=== PATIENT | female | born 1955 | race Caucasian/White ===

== ENCOUNTER 2016-09-08 08:16 | Emergency (ER) | payer OTHER ==
[~2016-09-08] VITALS: Ht 162.6 cm; Wt 59.1 kg
[2016-09-08] MEDS ORDERED: METFORMIN HCL500 M4 PO (09:03)
[2016-09-08] MEDS ORDERED: LISINOPRIL5 MG PO (09:03)
[2016-09-08] MEDS ORDERED: VENLAFAXINE HCL75 MG PO (09:04)
[2016-09-08] MEDS ORDERED: ALTOPREV20 MG PO (09:04)
[2016-09-08 09:23] LABS: HEMATOCRIT 38.4 % (36.0-46.0); MCH 31.8 PG (29.0-34.0); MCHC 33.9 G/DL (30.0-36.0); MCV 93.9 FL (83-99); MEAN PLAT.VOLUME 9.3 uM^3 (9.5-12.4); PLATELET COUNT 191 K/uL (156-360); RBC DIS.WIDTH-CV 12.9 % (11.8-14.6); RED BLOOD COUNT 4.09 M/uL (3.80-5.20)
[2016-09-08 09:40] LABS: CHLORIDE 107 mEq/L (99-109); POTASSIUM 4.1 mEq/L (3.7-5.4); SODIUM 137 mEq/L (136-147)
[2016-09-08 09:42] LABS: GLUCOSE 205 mg/dL (70-99)
[2016-09-08 09:43] LABS: ANION GAP 8 MEQ/L (2-14)
[2016-09-08 09:44] LABS: TOTAL BILIRUBIN 0.6 mg/dL (0.0-1.0)
[2016-09-08 09:46] LABS: ALKALINE PHOSPHATASE 131 IU/L (3-129); GFR ESTIMATE (CALCULATED) > 59 mL/min/
[2016-09-08 09:47] LABS: UREA NITROGEN (BUN) 11 mg/dL (9-23)
[2016-09-08 10:07] LABS: ADD MIUA? YES; BILIRUBIN NEGATIVE; BLOOD SMALL; COLOR YELLOW ((YELLOW)); GLUCOSE (STRIP) NEGATIVE; KETONES 5; LEUKOCYTES NEGATIVE; NITRITE NEGATIVE; PROTEIN (STRIP) NEGATIVE; SPECIFIC GRAVITY 1.009 (1.000-1.030); UROBILINOGEN 0.2 MG/DL (0.2-1.0)
[2016-09-08 10:29] LABS: BACTERIA RARE /HPF; EPITHELIAL CELLS 2+ /HPF; MUCUS TRACE /LPF; RED BLOOD CELLS 0-5 /HPF (0-5); WHITE BLOOD CELLS 0-5 /HPF (0-5)
[2016-09-08] MEDS ORDERED: ZOFRAN ODT4 MG PO (11:33)
[2016-09-08] MEDS ORDERED: PERCOCET 5/31 TABLET PO (11:33)
[2016-09-08 11:48] VITALS: BP 146/75
== END 2016-09-08 11:50 | disposition home or self-care (01) ==
LOC: EME 08:16
PROVIDERS: Nurse Practitioner Family
DX: K57.90 Diverticulosis of intestine, part unspecified, without perforation or abscess without bleeding (principal); R11.2 Nausea with vomiting, unspecified; E11.9 Type 2 diabetes mellitus without complications; E78.5 Hyperlipidemia, unspecified; Z87.442 Personal history of urinary calculi; M81.0 Age-related osteoporosis without current pathological fracture; F17.200 Nicotine dependence, unspecified, uncomplicated
CPT/HCPCS: 74176; 80053; 81003; 85027; 99281; 99285; J1885; J2270; J2405; J7030

== ENCOUNTER 2017-07-21 11:06 | Emergency (ER) | payer OTHER ==
[~2017-07-21] VITALS: Ht 162.6 cm; Wt 58.7 kg
[~2017-07-21 11:06] MED LIST: ALTOPREV20 MG PO; LISINOPRIL5 MG PO; METFORMIN HCL500 M4 PO; PERCOCET 5/31 TABLET PO; VENLAFAXINE HCL75 MG PO; ZOFRAN ODT4 MG PO
[2017-07-21 11:59] VITALS: BP 146/83
[2017-07-21 12:50] LABS: ADD MIUA? NO; BILIRUBIN NEGATIVE; BLOOD NEGATIVE; COLOR COLORLESS ((YELLOW)); GLUCOSE (STRIP) NEGATIVE; KETONES NEGATIVE; LEUKOCYTES NEGATIVE; NITRITE NEGATIVE; PROTEIN (STRIP) NEGATIVE; SPECIFIC GRAVITY 1.003 (1.000-1.030); UCUL ADDED? NO; UROBILINOGEN 0.2 MG/DL (0.2-1.0)
== END 2017-07-21 13:07 | disposition left against medical advice (07) ==
LOC: EME 11:06
DX: M54.9 Dorsalgia, unspecified (principal); Z53.21 Procedure and treatment not carried out due to patient leaving prior to being seen by health care provider
CPT/HCPCS: 80048; 81003; 85027

== ENCOUNTER 2017-09-15 09:28 | Emergency (ER) | payer OTHER ==
[~2017-09-15] VITALS: Ht 162.6 cm; Wt 54.5 kg
[2017-09-15 11:18] VITALS: BP 127/66
== END 2017-09-15 11:19 | disposition home or self-care (01) ==
LOC: EME 09:28
DX: E11.40 Type 2 diabetes mellitus with diabetic neuropathy, unspecified (principal); Z76.0 Encounter for issue of repeat prescription; M81.0 Age-related osteoporosis without current pathological fracture; Z87.442 Personal history of urinary calculi; F17.200 Nicotine dependence, unspecified, uncomplicated; Z79.84 Long term (current) use of oral hypoglycemic drugs
CPT/HCPCS: 99281; 99283

== ENCOUNTER 2017-10-19 19:57 | Inpatient (IN) | payer OTHER ==
[~2017-10-19] VITALS: Ht 162.6 cm; Wt 55.1 kg
[2017-10-19 20:21] LABS: HEMATOCRIT 34.2 % (36.0-46.0); HEMOGLOBIN 11.8 G/DL (11.9-15.5); MCH 34.5 PG (29.0-34.0); MCHC 34.5 G/DL (30.0-36.0); PLATELET COUNT 64 K/uL (156-360); RBC DIS.WIDTH-CV 12.8 % (11.8-14.6); RBC DIS.WIDTH-SD 47.2 % (39-53); RED BLOOD COUNT 3.42 M/uL (3.80-5.20); WHITE BLOOD COUNT 3.9 K/uL (4.1-10.2)
[2017-10-19 20:33] LABS: CHLORIDE 97 mEq/L (99-109); POTASSIUM 3.9 mEq/L (3.7-5.4); SODIUM 134 mEq/L (136-147)
[2017-10-19 20:35] LABS: GLUCOSE 181 mg/dL (70-99)
[2017-10-19 21:03] LABS: CREATININE 0.9 mg/dL (0.6-1.3); UREA NITROGEN (BUN) 11 mg/dL (9-23)
[2017-10-19 21:05] LABS: GFR ESTIMATE (CALCULATED) > 59 mL/min/
[2017-10-19 21:10] LABS: TROP-I INTERPRETATION NEGATIVE; TROPONIN-I < 0.01 ng/mL (0.0-0.30)
[2017-10-19 22:59] LABS: TROP-I INTERPRETATION NEGATIVE; TROPONIN-I < 0.01 ng/mL (0.0-0.30)
[2017-10-19] MEDS ORDERED: GLUCOPHAGE500 MG PO (23:28)
[2017-10-19] MEDS ORDERED: VENLAFAXINE HC150 MG PO (23:29)
[2017-10-19] MEDS ORDERED: LISINOPRIL5 MG PO (23:29)
[2017-10-19] MEDS ORDERED: NEURONTIN300 MG PO (23:30)
[2017-10-19] MEDS ORDERED: COUGH DROPS1 EACH MM (23:31)
[2017-10-19] MEDS ORDERED: VOLTAREN 1% GE100 GM TP (23:32)
[2017-10-19] MEDS ORDERED: TRAMADOL HCL100 MG PO (23:33)
[2017-10-20] VITALS (7 sets, daily range): BP systolic 110–148; BP diastolic 56–76
[2017-10-20 02:44] LABS: TROP-I INTERPRETATION NEGATIVE; TROPONIN-I < 0.01 ng/mL (0.0-0.30)
[2017-10-20 04:05] LABS: APPEARANCE CLEAR ((CLEAR)); BILIRUBIN NEGATIVE; BLOOD MODERATE; COLOR YELLOW ((YELLOW)); GLUCOSE (STRIP) >=500; KETONES 20; LEUKOCYTES NEGATIVE; NITRITE NEGATIVE; PROTEIN (STRIP) NEGATIVE; SPECIFIC GRAVITY 1.008 (1.000-1.030); UROBILINOGEN 0.2 MG/DL (0.2-1.0)
[2017-10-20 04:08] LABS: BACTERIA RARE /HPF; EPITHELIAL CELLS RARE /HPF; MUCUS NONE SEEN /LPF; RED BLOOD CELLS 15-20 /HPF (0-5); UCUL ADDED? NO; WHITE BLOOD CELLS 0-5 /HPF (0-5)
[2017-10-20 09:31] LABS: BASOPHIL (%) 0.3 % (0-1); EOSINOPHIL (%) 0 % (0-5); HEMATOCRIT 33.6 % (36.0-46.0); HEMOGLOBIN 11.4 G/DL (11.9-15.5); IMMATURE GRANULOCYTE (%) 0.3 % (0.0-0.7); LYMPHOCYTE (%) 19.9 % (15-42); LYMPHOCYTE COUNT 0.7 K/uL (1.0-2.8); MCH 34.8 PG (29.0-34.0); MCHC 33.9 G/DL (30.0-36.0); MCV 102.4 FL (83-99); MONOCYTE (%) 4.4 % (3-12); MONOCYTE COUNT 0.2 K/uL (0-0.8); NEUTROPHIL (%) 75.1 % (45-76); NEUTROPHIL COUNT 2.6 K/uL (1.8-6.4); PLATELET COUNT 55 K/uL (156-360); RBC DIS.WIDTH-CV 12.9 % (11.8-14.6); RBC DIS.WIDTH-SD 48.9 % (39-53); RED BLOOD COUNT 3.28 M/uL (3.80-5.20); WHITE BLOOD COUNT 3.4 K/uL (4.1-10.2)
[2017-10-20 11:14] LABS: FOLIC ACID (FOLATE) 16.6 NG/ML (5.0-22.0)
[2017-10-21 03:55] VITALS: BP 118/74
[2017-10-21 06:03] LABS: HEMATOCRIT 31.5 % (36.0-46.0); HEMOGLOBIN 10.7 G/DL (11.9-15.5); IMM.RETIC FRACTION 19.6 % (3-19); MCH 34.4 PG (29.0-34.0); MCV 101.3 FL (83-99); PLATELET COUNT 56 K/uL (156-360); RBC DIS.WIDTH-CV 12.9 % (11.8-14.6); RBC DIS.WIDTH-SD 48.1 % (39-53); RED BLOOD COUNT 3.11 M/uL (3.80-5.20); RETIC HGB EQUIVALENT 30.5 (28-36); RETICULOCYTE COUNT 1.6 % (0.5-1.8); WHITE BLOOD COUNT 7.9 K/uL (4.1-10.2)
[2017-10-21 06:10] LABS: INTER. NORMALIZED RATIO 0.9
[2017-10-21 06:12] LABS: PTT 26.8 SEC (25-37)
[2017-10-21 07:02] LABS: ALKALINE PHOSPHATASE 113 IU/L (3-129); ALT (GPT) 12 IU/L (3-49); AST (GOT) 20 IU/L (2-34); CHLORIDE 100 MEQ/L (99-109); CREATININE 0.7 MG/DL (0.6-1.3); GFR ESTIMATE (CALCULATED) > 59 mL/min/; GLUCOSE 226 mg/dL (70-99); SODIUM 135 MEQ/L (136-147); TOTAL BILIRUBIN 0.3 MG/DL (0.0-1.0); TOTAL PROTEIN 6.5 G/DL (6.4-8.3)
[2017-10-21 07:05] LABS: POTASSIUM 4.7 MEQ/L (3.7-5.4); UREA NITROGEN (BUN) 25 mg/dL (9-23)
[2017-10-21 08:03] VITALS: BP 93/62
[2017-10-21 09:49] LABS: THYROTROPIN (TSH) 0.12 MIU/L (0.4-5.5)
[2017-10-21 10:38] LABS: HEPATITIS C ANTIBODY Nonreactive; HIV-1/2 AB/AG COMBO Nonreactive
[2017-10-21 11:46] LABS: HEMOGLOBIN A1c (GLYCOHEMOGLOB) 9.4 % (Below 5.7)
[2017-10-21 12:35] VITALS: BP 120/57
[2017-10-21 16:00] VITALS: BP 129/71
[2017-10-21 19:23] VITALS: BP 136/70
[2017-10-21 23:43] VITALS: BP 126/60
[2017-10-22 03:48] VITALS: BP 146/73
[2017-10-22 06:14] LABS: BASOPHIL (%) 0.1 % (0-1); EOSINOPHIL (%) 0 % (0-5); HEMATOCRIT 33.9 % (36.0-46.0); HEMOGLOBIN 11.4 G/DL (11.9-15.5); IMMATURE GRANULOCYTE (%) 0.7 % (0.0-0.7); LYMPHOCYTE (%) 12.6 % (15-42); MCH 34.4 PG (29.0-34.0); MCHC 33.6 G/DL (30.0-36.0); MCV 102.4 FL (83-99); MONOCYTE COUNT 0.4 K/uL (0-0.8); NEUTROPHIL (%) 81.6 % (45-76); NEUTROPHIL COUNT 6.5 K/uL (1.8-6.4); PLATELET COUNT 64 K/uL (156-360); RBC DIS.WIDTH-CV 12.9 % (11.8-14.6); RBC DIS.WIDTH-SD 48.7 % (39-53); RED BLOOD COUNT 3.31 M/uL (3.80-5.20)
[2017-10-22 06:45] LABS: A/G RATIO 1.2 (1.1-1.8); CHLORIDE 101 MEQ/L (99-109); CREATININE 0.7 MG/DL (0.6-1.3); GFR ESTIMATE (CALCULATED) > 59 mL/min/; GLOBULINS 3.3 G/DL (2.3-3.5); GLUCOSE 319 mg/dL (70-99); POTASSIUM 4.6 MEQ/L (3.7-5.4); SODIUM 135 MEQ/L (136-147); TOTAL PROTEIN 7.3 G/DL (6.4-8.2); UREA NITROGEN (BUN) 24 mg/dL (9-23)
[2017-10-22 06:47] LABS: IMMUNOGLOBULIN G 737 MG/DL (650-1600); IMMUNOGLOBULIN M 114 MG/DL (50-300)
[2017-10-22 07:11] VITALS: BP 153/86
[2017-10-22 10:59] VITALS: BP 134/83
[2017-10-22 15:04] VITALS: BP 118/62
[2017-10-22 19:46] VITALS: BP 144/83
[2017-10-22 23:43] VITALS: BP 127/69
[2017-10-23 03:44] VITALS: BP 146/90
[2017-10-23 06:09] LABS: BASOPHIL (%) 0.4 % (0-1); EOSINOPHIL (%) 0 % (0-5); HEMOGLOBIN 11.6 G/DL (11.9-15.5); IMMATURE GRANULOCYTE (%) 1.7 % (0.0-0.7); LYMPHOCYTE (%) 19.9 % (15-42); LYMPHOCYTE COUNT 1.5 K/uL (1.0-2.8); MCH 33.5 PG (29.0-34.0); MCHC 33.1 G/DL (30.0-36.0); MCV 101.2 FL (83-99); MONOCYTE (%) 4.1 % (3-12); MONOCYTE COUNT 0.3 K/uL (0-0.8); NEUTROPHIL (%) 73.9 % (45-76); NEUTROPHIL COUNT 5.6 K/uL (1.8-6.4); PLATELET COUNT 76 K/uL (156-360); RBC DIS.WIDTH-CV 12.7 % (11.8-14.6); RBC DIS.WIDTH-SD 47.6 % (39-53); RED BLOOD COUNT 3.46 M/uL (3.80-5.20); WHITE BLOOD COUNT 7.6 K/uL (4.1-10.2)
[2017-10-23 06:15] LABS: PTT 25.4 SEC (25-37)
[2017-10-23 08:08] VITALS: BP 132/76
[2017-10-23 08:13] LABS: ABS NEUTROPHIL COUNT 6.1; ANISOCYTOSIS 2+; ATYPICAL LYMPHOCYTE 6.1 %; BAND NEUTROPHILS 5.2 % (0-8.0); EOSINOPHIL ABS CT 0; LYMPHOCYTES 12.2 % (15.0-45.0); MACROCYTES 2+; MONOCYTES 1.7 % (0-9.0); NUCLEATED RBC'S 0.9; PLAT.SUFFICIENCY DECREASED; POLYCHROMASIA 1+; SEG.NEUTROPHILS 74.8 % (46.0-76.0)
[2017-10-23 11:07] VITALS: BP 132/76
[2017-10-23 14:41] LABS: ALBUMIN 3.99 G/DL (3.6-4.9); ALPHA-1 GLOBULIN 0.39 G/DL (0.15-0.40); ALPHA-2 GLOBULIN 1.28 G/DL (0.45-0.85); BETA-GLOBULIN 0.83 G/DL (0.65-1.15)
[2017-10-23 18:29] VITALS: BP 140/78
[2017-10-23 20:03] VITALS: BP 154/96
[2017-10-23 23:58] VITALS: BP 102/62
[2017-10-24 03:55] VITALS: BP 113/56
[2017-10-24] MEDS ORDERED: NICOTINE PATCH1 EAC1 TD (07:25)
[2017-10-24] MEDS ORDERED: AZITHROMYCIN500 M1 PO (07:26)
[2017-10-24] MEDS ORDERED: VENTOLIN HFA18 GM IH (07:26)
[2017-10-24] MEDS ORDERED: MEDROL DOSEPAK4 MG PO (07:26)
[2017-10-24] MEDS ORDERED: ATROVENT H200 INHALA IH (07:27)
[2017-10-24] MEDS ORDERED: VITAMIN B122500 MCG PO (07:28)
[2017-10-24 07:35] VITALS: BP 132/78
[2017-10-27 11:24] LABS: LD-1 20; LD-2 31
[2017-10-27 11:25] LABS: LD-3 25; LD-4 11; LD-5 13
== END 2017-10-24 12:43 | disposition home or self-care (01) | DRG 190 ==
LOC: EME 19:57 → 5SOUTH 23:43 → EDOF 23:43 → ENRESERV 23:44 → 5SOUTH 10-20 01:34
PROVIDERS: Emergency Medicine; Hospitalist; Internal Medicine; Physician Assistant
PROC: 07DR3ZX Extraction of Iliac Bone Marrow, Percutaneous Approach, Diagnostic (ICD-10-PCS; principal; 2017-10-23)
DX: J43.9 Emphysema, unspecified (principal); J96.01 Acute respiratory failure with hypoxia; D61.818 Other pancytopenia; J20.9 Acute bronchitis, unspecified; E11.65 Type 2 diabetes mellitus with hyperglycemia; E11.40 Type 2 diabetes mellitus with diabetic neuropathy, unspecified; D53.9 Nutritional anemia, unspecified; F17.200 Nicotine dependence, unspecified, uncomplicated; Z71.6 Tobacco abuse counseling; E78.5 Hyperlipidemia, unspecified; M81.0 Age-related osteoporosis without current pathological fracture; F41.9 Anxiety disorder, unspecified; F32.9 Major depressive disorder, single episode, unspecified; Z79.84 Long term (current) use of oral hypoglycemic drugs; Z87.442 Personal history of urinary calculi; Z90.710 Acquired absence of both cervix and uterus; Z80.3 Family history of malignant neoplasm of breast; Z82.49 Family history of ischemic heart disease and other diseases of the circulatory system
CPT/HCPCS: 71046; 71275; 76705; 77012; 80048; 80076; 81003; 82525 90; 82607; 82746; 82784; 82948; 83036; 83615 90; 83625 90; 84165; 84439; 84443; 84484; 84630 90; 85007; 85025; 85027; 85046; 85379; 85610; 85730; 86038; 86334; 86803; 87070; 87205; 87389; 93005; 94640; 94760; 94799; 99202; 99281; 99285; J0696; J1100; J1650; J1815; J2920; J2930; J3010; J3475; J7030; J7512